=== PATIENT | female | born 1955 | race Caucasian/White ===

== ENCOUNTER 2022-07-19 10:33 | Outpatient (CLI) | payer MEDICARE ==
[2022-07-19 11:22] LABS: Hemoglobin 12.6 g/dL (12.0-15.5); Mean Corpuscular HGB CONC 32.3 g/dL (32.0-36.0); Mean Corpuscular Hemoglobin 31.4 pg (27.0-33.0); Mean Corpuscular Volume 97.3 fl (81.6-98.3); Mean Platelet Volume 10.4 fl (7.4-10.4); Platelet Count 195 10x3/uL (150-450); RBC Distribution Width 13.8 % (11.5-14.5); Red Blood Cell (RBC) Count 4.01 10x6/uL (3.90-5.03); White Blood Cell (WBC) Count 5.1 10x3/uL (3.5-10.5)
[2022-07-19 11:33] LABS: ALT (SGPT) 15 U/L (8-55); AST (SGOT) 20 U/L (5-34); Alkaline Phosphatase 123 U/L (40-110); Anion Gap 15 mmol/L (10-20); BUN (Urea Nitrogen) 26 mg/dL (9.8-20.1); Bilirubin, Total 0.5 mg/dL (0.2-1.2); Calc. Creatinine Clearance 0 mL/min (70-130); Calcium 9.4 mg/dL (7.8-10.44); Carbon Dioxide 25 mmol/L (23-31); Chloride 106 mmol/L (98-107); Estimated GFR 77; Glucose 98 mg/dL (80-115); Potassium 4.5 mmol/L (3.5-5.1); Sodium 141 mmol/L (136-145)
== END 2022-07-19 10:34 | disposition home or self-care (01) ==
LOC: CSHLAB 10:33
PROVIDERS: ATTEND Surgery
DX: Z01.818 Encounter for other preprocedural examination (principal); D05.11 Intraductal carcinoma in situ of right breast
CPT/HCPCS: 80053; 85027; 93005; 93010

== ENCOUNTER 2022-07-20 05:48 | Day surgery (SDC) | payer MEDICARE ==
[2022-07-18 12:59] VITALS: BMI 45.3
[2022-07-20] MEDS ORDERED: EPINEPHrine 1 MG/ML AMP ONE (09:35)
[2022-07-20] MEDS ORDERED: Bupivacaine PF 0.5% 30 ML VIAL ONE (09:35)
[2022-07-20] MEDS ORDERED: Clindamycin/D5W 600 mg/50 ml Premix Bag ONE (09:46)
[2022-07-20] MEDS ORDERED: Fentanyl 100 MCG/2 ML VIAL ONE (09:54)
[2022-07-20] MEDS ORDERED: PROPOFOL 20 ML ONE (09:54)
[2022-07-20] MEDS ORDERED: Ondansetron PF 4 MG/2 ML Vial ONE (10:37)
[2022-07-20] MEDS ORDERED: Dexamethasone 4 mg/ml Vial ONE (10:38)
[2022-07-20] MEDS ORDERED: Acetaminophen 325 MG TAB PO PRN (11:00)
[2022-07-20] MEDS ORDERED: traMADol HCl 50 MG TAB PO PRN (11:00)
== END 2022-07-20 12:25 | disposition home or self-care (01) ==
LOC: CSHSDC 05:48
PROVIDERS: ATTEND Surgery
PROC: 0HBT0ZZ Excision of Right Breast, Open Approach (ICD-10-PCS; principal; 2022-07-20)
DX: D05.11 Intraductal carcinoma in situ of right breast (principal); N64.1 Fat necrosis of breast; I10 Essential (primary) hypertension; E66.01 Morbid (severe) obesity due to excess calories; Z68.42 Body mass index [BMI] 45.0-49.9, adult; E78.5 Hyperlipidemia, unspecified; Z79.899 Other long term (current) drug therapy; Z87.891 Personal history of nicotine dependence; Z88.0 Allergy status to penicillin; Z88.5 Allergy status to narcotic agent
CPT/HCPCS: 19281; 19301; 76098; C1713; 88307; J0171; J1100; J2405; J2704; J3010; J3490; S0020

== ENCOUNTER 2022-08-03 07:46 | Day surgery (SDC) | payer MEDICARE ==
[2022-08-01 10:16] VITALS: BMI 47.0
[2022-08-03] MEDS ORDERED: Bupivacaine HCl 0.5%/Epinephrine 1:200,000/PF 30 ml Vial ONE (08:06)
[2022-08-03] MEDS ORDERED: Clindamycin/D5W 600 mg/50 ml Premix Bag ONE (08:56)
[2022-08-03] MEDS ORDERED: PROPOFOL 20 ML ONE (09:11)
[2022-08-03] MEDS ORDERED: Ondansetron PF 4 MG/2 ML Vial ONE (09:11)
[2022-08-03] MEDS ORDERED: Fentanyl 100 MCG/2 ML VIAL ONE (09:11)
[2022-08-03] MEDS ORDERED: Lidocaine 1% PF 5 ML VIAL ONE (09:11)
[2022-08-03] MEDS ORDERED: Dexamethasone 4 mg/ml Vial ONE (09:43)
[2022-08-03] MEDS ORDERED: ePHEDrine Sulfate 50 MG/10 ML VIAL ONE (10:12)
[2022-08-03] MEDS ORDERED: traMADol HCl 50 MG TAB PO PRN (10:33)
[2022-08-03] MEDS ORDERED: Acetaminophen 325 MG TAB PO PRN (10:33)
== END 2022-08-03 11:47 | disposition home or self-care (01) ==
LOC: CSHSDC 07:46
PROVIDERS: ATTEND Surgery
PROC: 0HBT0ZZ Excision of Right Breast, Open Approach (ICD-10-PCS; principal; 2022-08-03)
DX: D05.11 Intraductal carcinoma in situ of right breast (principal); N60.91 Unspecified benign mammary dysplasia of right breast; E66.01 Morbid (severe) obesity due to excess calories; Z68.42 Body mass index [BMI] 45.0-49.9, adult; I10 Essential (primary) hypertension; Z87.891 Personal history of nicotine dependence; Z88.5 Allergy status to narcotic agent; Z88.0 Allergy status to penicillin; Z86.000 Personal history of in-situ neoplasm of breast; Z79.899 Other long term (current) drug therapy; Z91.018 Allergy to other foods
CPT/HCPCS: 19120; C1713; 88307; J1100; J2405; J2704; J3010; J3490

== ENCOUNTER 2022-11-30 10:34 | Outpatient (CLI) | payer MEDICARE | END 2022-11-30 10:35 | disposition home or self-care (01) | LOC: CSHWCC 10:34 | PROVIDERS: ATTEND Nurse Practitioner Family | DX: R60.0 Localized edema (principal); I87.331 Chronic venous hypertension (idiopathic) with ulcer and inflammation of right lower extremity; L97.412 Non-pressure chronic ulcer of right heel and midfoot with fat layer exposed | CPT/HCPCS: 97139; G0463; 99213 ==

== ENCOUNTER 2022-12-21 09:11 | Outpatient (CLI) | payer MEDICARE | END 2022-12-21 09:12 | disposition home or self-care (01) | LOC: CSHWCC 09:11 | PROVIDERS: ATTEND Nurse Practitioner Family | DX: I87.331 Chronic venous hypertension (idiopathic) with ulcer and inflammation of right lower extremity (principal); L97.412 Non-pressure chronic ulcer of right heel and midfoot with fat layer exposed; L97.812 Non-pressure chronic ulcer of other part of right lower leg with fat layer exposed; R60.0 Localized edema | CPT/HCPCS: 97597; 99213; G0463 ==

== ENCOUNTER 2023-01-18 09:29 | Outpatient (CLI) | payer MEDICARE | END 2023-01-18 09:30 | disposition home or self-care (01) | LOC: CSHWCC 09:29 | PROVIDERS: ATTEND Nurse Practitioner Family | DX: R60.0 Localized edema (principal); I87.331 Chronic venous hypertension (idiopathic) with ulcer and inflammation of right lower extremity; L97.412 Non-pressure chronic ulcer of right heel and midfoot with fat layer exposed ==

== ENCOUNTER 2023-02-15 09:32 | Outpatient (CLI) | payer MEDICARE | END 2023-02-15 09:33 | disposition home or self-care (01) | LOC: CSHWCC 09:32 | PROVIDERS: ATTEND Nurse Practitioner Family | DX: I87.331 Chronic venous hypertension (idiopathic) with ulcer and inflammation of right lower extremity (principal); L97.412 Non-pressure chronic ulcer of right heel and midfoot with fat layer exposed; R60.0 Localized edema | CPT/HCPCS: 97139; G0463; 99213 ==

== ENCOUNTER 2023-04-20 09:59 | Outpatient (CLI) | payer MEDICARE | END 2023-04-20 10:00 | disposition home or self-care (01) | LOC: CSHWCC 09:59 | PROVIDERS: ATTEND Physician Assistant | DX: T25.221D Burn of second degree of right foot, subsequent encounter (principal); I87.331 Chronic venous hypertension (idiopathic) with ulcer and inflammation of right lower extremity; I73.9 Peripheral vascular disease, unspecified | CPT/HCPCS: 97602 ==